=== PATIENT | male | born 1975 | race Caucasian/White ===

== ENCOUNTER 2020-10-02 18:39 | Emergency (ER) | payer SELFPAY ==
[2020-10-02 18:47] VITALS: BP 156/87; PULSE 77; TEMP 98.1; BMI 28.2
[2020-10-02] MEDS ORDERED: FLUORESCEIN NA 1 EA STRIP ONE (18:49)
[2020-10-02] MEDS ORDERED: BACITRACIN 15 GM TUBE TOPICAL OINTMENT ONE (18:50)
[2020-10-02] MEDS ORDERED: IBUPROFEN 400 MG TABLET (FP) PO ONE (19:17)
== END 2020-10-02 20:26 | disposition home or self-care (01) ==
LOC: JERFT 18:39
DX: T15.11XA Foreign body in conjunctival sac, right eye, initial encounter (principal); S05.01XA Injury of conjunctiva and corneal abrasion without foreign body, right eye, initial encounter
CPT/HCPCS: 99283-25